=== PATIENT | male | born 1955 | race Caucasian/White ===

== ENCOUNTER 2019-02-15 08:27 | Outpatient (CLI) | payer MEDICARE, BC ==
[2019-02-15] MEDS ORDERED: iohexol 350MG/ML 100ml bottle IV ONE (08:37)
[2019-02-15] MEDS ORDERED: iohexol 350 MG/ML 50ML vial IV ONE (08:37)
[2019-03-07] MEDS ORDERED: METO-395 PO (14:57)
[2019-03-07] MEDS ORDERED: ROSU10TA2 PO (14:57)
[2019-03-07] MEDS ORDERED: LOSA25TA96 PO (14:57)
[2019-03-11] MEDS ORDERED: ASPI-845 PO (08:06)
[2019-03-11] MEDS ORDERED: HYDR-4353 PO (08:06)
[2019-03-11] MEDS ORDERED: DOCU100C40 PO (08:06)
[2019-03-11] MEDS ORDERED: GABA100C PO (09:00)
== END 2019-02-15 23:59 | disposition home or self-care (01) ==
LOC: 64 CT 08:27
PROVIDERS: ATTEND Surgery
DX: I74.3 Embolism and thrombosis of arteries of the lower extremities (principal); I83.93 Asymptomatic varicose veins of bilateral lower extremities
CPT/HCPCS: 75635; Q9967

== ENCOUNTER 2019-04-22 12:29 | Outpatient (CLI) | payer MEDICARE, BC ==
[~2019-04-22 12:29] MED LIST: ASPI-845 PO; DOCU100C40 PO; GABA100C PO; HYDR-4353 PO; METO-395 PO; ROSU10TA2 PO
== END 2019-04-22 23:59 | disposition home or self-care (01) ==
LOC: VAS 12:29
PROVIDERS: ATTEND Surgery
DX: I73.9 Peripheral vascular disease, unspecified (principal); I10 Essential (primary) hypertension; Z98.890 Other specified postprocedural states; Z72.89 Other problems related to lifestyle
CPT/HCPCS: 93922; 93925; 93971